=== PATIENT | female | born 1975 | race Two or more races ===

== ENCOUNTER 2018-08-29 05:49 | Day surgery (SDC) | payer MEDICAID ==
[2018-08-29] MEDS: LACTATED RINGER'S 1,000 ML IV (06:42)
[2018-08-29] MEDS ORDERED: BUPIVACAINE 0.5%/EPI (SDV) 10 ML INJ (06:58)
[2018-08-29] MEDS ORDERED: PHENYLephrine (100 MCG/ML) 10ML SYG (07:00)
[2018-08-29] MEDS: CEFAZOLIN 2 GM/50 ML (PMX) 50 ML IVPB (07:00)
[2018-08-29] MEDS: BUPIVACAINE 0.5%/EPI (SDV) 30 ML INJ (07:31)
[2018-08-29] MEDS ORDERED: PROPOFOL 20 ML (07:46)
[2018-08-29] MEDS ORDERED: ROCURONIUM 50 MG INJ (07:46)
[2018-08-29] MEDS ORDERED: LIDOCAINE 2% (SDV) 5 ML INJ (07:46)
[2018-08-29] MEDS ORDERED: ONDANSETRON 4 MG INJ (07:59)
[2018-08-29] MEDS ORDERED: DEXAMETHASONE 4 MG/ML 5 ML INJ (07:59)
[2018-08-29] MEDS ORDERED: CEFAZOLIN 1 GM INJ (07:59)
[2018-08-29] MEDS ORDERED: METOCLOPRAMIDE 10 MG INJ (07:59)
[2018-08-29] MEDS ORDERED: FAMOTIDINE 20 MG INJ (07:59)
[2018-08-29] MEDS ORDERED: SUGAMMADEX SODIUM 200 MG/2 ML VIAL IV (08:32)
[2018-08-29] MEDS ORDERED: MEPERIDINE 25 MG INJ IV (09:00)
[2018-08-29] MEDS ORDERED: ONDANSETRON 4 MG INJ IV (09:00)
[2018-08-29] MEDS ORDERED: OXYCODONE/ACETAMINOPHEN (5/325) TAB PO (09:00)
[2018-08-29] MEDS ORDERED: FENTAnyl 50 MCG/ML VIAL IV ×3 (09:00)
[2018-08-29] MEDS: OXYCODONE/ACETAMINOPHEN (5/325) TAB PO (10:14)
== END 2018-08-29 10:39 | disposition home or self-care (01) ==
LOC: SDS 05:49
DX: Z30.2 Encounter for sterilization (principal)
CPT/HCPCS: 58661; 84703; 88302